=== PATIENT | female | born 1995 | race Caucasian/White ===

== ENCOUNTER 2020-04-11 08:46 | Emergency (ER) | payer OTHER, SELFPAY ==
[2020-04-11 09:01] VITALS: BP 124/74; PULSE 108; RESP 16; TEMP 36.6; O2SAT 99
--- NOTE | 2020-04-11 09:18 | ED.BACK ---
HPI - Back Pain/Injury General Chief Complaint: Back Pain/Injury Stated Complaint: Rib Pain Time Seen by Provider: 04/11/20 09:18 Source: patient Mode of arrival: ambulatory Limitations: no limitations History of Present Illness HPI Narrative: 24-year-old female patient presents to the [facility] with complaints of right-sided rib pain for the past week and a half. Patient states that she was in [place] about a week and a half ago and slipped on foot futon when she woke up she had some right-sided rib pain and thinks that she might of slept wrong or pulled muscle. Patient states that she was seen last Saturday at an urgent care and they did do a chest x-ray and a rib x-ray and states that it was most likely a pulled muscle and discharge her home with tramadol. Patient states that she does have issues with fibromyalgia and is on a muscle relaxant currently as well as an anti-inflammatory and she has been using a heating pad to the rib area. Patient states she has been laying around a lot. Patient's comes in today because she states she is still having pain and requesting narcotic pain medication. Related Data Home Medications Medication Instructions Recorded Confirmed methocarbamol 750 mg PO TID 04/11/20 04/11/20 Allergies Allergy/AdvReac Type Severity Reaction Status Date / Time acetaminophen [From Percocet] Allergy Seizure Verified 04/11/20 09:13 oxycodone [From Percocet] Allergy Seizure Verified 04/11/20 09:13 topiramate [From Topamax] Allergy Itching Verified 04/11/20 09:13 Review of Systems Review of Systems: Narrative: CONSTITUTIONAL: Denies fever, chills, or sweats. EYES: Denies visual changes, redness, or discharge. ENT: Denies rhinorrhea, congestion, sore throat, or otalgia. CARDIOVASCULAR: Denies chest pain, palpitations, or edema. RESPIRATORY: Denies cough or dyspnea. Positive right-sided rib pain times a week and a half GASTROINTESTINAL: Denies abdominal pain, nausea, vomiting, or diarrhea. GENITOURINARY: Denies dysuria or hematuria. SKIN: Denies rash or itching. MUSCULOSKELETAL: Denies back pain, joint pain, or myalgia. NEUROLOGIC: Denies headache, numbness, or weakness. PSYCHIATRIC: Denies anxiety or depression. PMFSH Comments At the time of my signature I agree with nursing past medical history, surgical, social, and family history. There is no relevant family history pertinent to the presenting complaint. Exam Narrative: Exam Narrative: GENERAL: Well-appearing, well-nourished, and in no acute distress. HEAD: Normocephalic, atraumatic. EYES: PERRLA and EOMI. ENT: Nares clear, no rhinorrhea or epistaxis. Mucous membranes moist. NECK: Supple. No lymphadenopathy CHEST: Clear to auscultation. No respiratory distress. Patient able talk in clear complete sentences. There is a little bit of muscle spasm and tenderness noted to the muscle area of the right side chest wall lateral. No pain rib bone tenderness noted. HEART: Regular rate and rhythm. No murmur heard. Normal peripheral pulses. ABDOMEN: Soft, nontender, nondistended, normal active bowel sounds. EXTREMITIES: Normal range of motion. No edema. SKIN: Warm, dry, no rash. NEURO: No focal deficits. Alert and oriented x3. Course Reevaluation(s) Reevaluation #1: Discussed with patient that this most likely is some type of pulled muscle and this unfortunately is going to take time to heal. Discussed with patient since she is already on anti-inflammatory and muscle relaxants I do not see how I can prescribe her any more medication. Discussed with her that I feel that it is inappropriate to give narcotics for a pulled muscle and I would recommend that she continue using the heat, gentle stretching exercises and I do not recommend laying around but rather getting up moving around for that is going to help with the pulled muscle pain. Discussed with patient that if she has symptoms such as low-grade fevers, a cough or have issues with breathing she needs to be se
== END 2020-04-11 09:41 | disposition home or self-care (01) ==
PROVIDERS: Emergency Provider Nurse Practitioner Family
DX: S29.011D Strain of muscle and tendon of front wall of thorax, subsequent encounter (principal); W19.XXXD Unspecified fall, subsequent encounter; M79.7 Fibromyalgia
CPT/HCPCS: 99201; G0463

== ENCOUNTER 2020-08-14 13:04 | Emergency (ER) | payer OTHER, SELFPAY ==
--- NOTE | ~2020-08-14 | XR_ITS ---
EXAMINATION: XR chest 2V DATE: 08/14/2020 13:51 INDICATION: Right lateral chest pain. TECHNIQUE: Frontal and lateral views of the chest were obtained. COMPARISON: None. FINDINGS: The chest demonstrates clear lungs without pneumonia, pleural effusion, or pneumothorax. Th e heart size is normal. There are old healed right rib fractures. IMPRESSION: 1. No acute cardiopulmonary disease. Reviewed, dictated and finalized at location A.
--- NOTE | 2020-08-14 13:24 | ED.GENADULT ---
HPI - General Adult General Chief complaint: Unspecified Stated complaint: right rib pain Time Seen by Provider: 08/14/20 13:29 Source: patient Mode of arrival: ambulatory Limitations: no limitations History of Present Illness HPI narrative: Fanta Marquez is a 25 to femal with a PMH of migraines, myalgia arthritis, states that her right rib cage has started to hurt again after a break in pain from broken ribs a couple months ago. She states she originally broke her rib with lifting and was medicated and that seemed to finally heal but in the last week her pain in the chest chest started to increase again and it hurts when she coughs sneezes are turned a certain way Related Data Home Medications Medication Instructions Recorded Confirmed dextroamphetamine-amphetamine 10 mg PO DAILY 04/11/20 08/14/20 leflunomide 20 mg PO DAILY 04/11/20 08/14/20 milnacipran [Savella] 50 mg PO BID 04/11/20 08/14/20 olanzapine 30 mg PO DAILY 04/11/20 08/14/20 pregabalin 75 mg PO TID 04/11/20 08/14/20 sulfasalazine 500 mg PO QID 04/11/20 08/14/20 zaleplon 10 mg PO HS 04/11/20 08/14/20 certolizumab pegol [Cimzia] 400 mg SUBCUT MONTHLY 08/14/20 08/14/20 methocarbamol 1,000 mg PO QID 08/14/20 08/14/20 sulindac 150 mg PO BID 08/14/20 08/14/20 Allergies Allergy/AdvReac Type Severity Reaction Status Date / Time oxycodone [From Percocet] Allergy Seizure Verified 08/14/20 13:23 topiramate [From Topamax] Allergy Itching Verified 08/14/20 13:23 Review of Systems Review of Systems: Narrative: CONSTITUTIONAL: Denies fever, chills, sweats. EYES: Denies visual changes, redness, discharge. ENT: Denies rhinorrhea, congestion, sore throat, otalgia. CARDIOVASCULAR: Denies chest pain, palpitations, edema. RESPIRATORY: Denies dyspnea, wheezing, cough GASTROINTESTINAL: Denies abdominal pain, nausea, vomiting, diarrhea. GENITOURINARY: Denies dysuria, hematuria, abnormal discharge SKIN: Denies rash or itching. NEUROLOGIC: Denies numbness, or focal weakness. PSYCHIATRIC: Denies anxiety or depression. Right-sided upper chest wall pain PMFSH Past Medical History Medical History Arthritis Fibromyalgia Migraines Raynauds disease Family History Family History Other Hypertension Social History Social History (Updated 08/14/20 @ 14:04 by Moriah Meraz CNP) Smoking status: Current some day smoker Tobacco type: cigarettes and e-cigarettes/vaping Alcohol intake: current Comments At time of signature, I agree with nursing past medical, surgical, social and family history. There is no relevant family history pertinent to the presenting complaint. Exam Narrative: Exam Narrative: GENERAL: This is a well-nourished, well-developed patient, in moderate distress. HEAD: normocephalic, atraumatic. EYES: Sclera clear/white. Vision is grossly intact. EARS: External ears normal. Hearing grossly intact. NOSE: External nose normal without nasal discharge, nares without redness, no rhinorrhea. THROAT: Mucous membranes moist, NECK: Neck supple, CARDIOVASCULAR: Regular rate and rhythm without murmurs, gallops, or rubs. RESPIRATORY: Clear to auscultation. Breath sounds equal bilaterally. No wheezes, rales, or rhonchi. Pain on inspiration; anterior chest wall pain GASTROINTESTINAL: Abdomen soft, non-tender, SKIN: warm, intact with no suspicious lesions or rash, good texture and turgor. NEURO: awake, alert, and oriented to person, place and time. There were no obvious focal neurologic abnormalities. Steady gait EXTREMITIES: Normal range of motion. BACK: Nontender without deformity Course Course Emergency Course: [facility] anterior upper chest wall pain that started in the last few weeks again. She had broken ribs a couple months ago states the pain is resolved that but she is done something recently that has aggra
[2020-08-14 13:25] VITALS: BP 139/79; PULSE 91; RESP 16; TEMP 36.2; O2SAT 99
== END 2020-08-14 14:33 | disposition home or self-care (01) ==
PROVIDERS: Emergency Provider Nurse Practitioner
DX: R07.81 Pleurodynia (principal); F17.219 Nicotine dependence, cigarettes, with unspecified nicotine-induced disorders; M19.90 Unspecified osteoarthritis, unspecified site; M79.7 Fibromyalgia; I73.00 Raynaud's syndrome without gangrene
CPT/HCPCS: 71046; 99213; G0463